=== PATIENT | female | born 2005 | race Caucasian/White ===

== ENCOUNTER 2024-01-01 09:00 | Outpatient (CLI) | payer BC, SELFPAY ==
--- NOTE | ~2024-01-01 | XR_ITS ---
EXAMINATION: XR foot RT min 3V, XR toe 3rd RT min 2V DATE: 01/01/2024 09:30 INDICATION: Stubbed the right third toe 4 days prior with pain at the third metatarsophalangeal joint TECHNIQUE: 1. Dorsoplantar, two oblique and lateral views of the right foot were obtained. 2. Dorsoplantar, two oblique and lateral views of the right third toe were obtained. COMPARISON: None. FINDINGS: Alignment is normal. No fracture. Joint spaces are normal. Soft tissues are unremarkable. IMPRESSION: 1. Negative right foot and third toe radiographs. Reviewed, dictated and finalized at location A. IMPRESSION: 1. Negative right foot and third toe radiographs.
== END 2024-01-01 09:01 ==
LOC: MICIMG 09:08
PROVIDERS: PCP Nurse Practitioner; Visit Provider Nurse Practitioner
DX: M79.674 Pain in right toe(s) (principal)
CPT/HCPCS: 73630; 73660